=== PATIENT | female | born 2000 | race Caucasian/White ===

== ENCOUNTER 2019-09-25 14:41 | Emergency (ER) | payer BC ==
--- NOTE | 2019-09-25 17:31 | ED ---
Abdominal Pain/Female - HPI Summary HPI Summary: Patient complains of right upper quadrant pain since 4 days, associated decreased by mouth intake, nausea, one episode of diarrhea yesterday, 2 bowel movements in one week, with one episode of syncope 2 days ago inshower. Patient has history of cholecystectomy in [address] [facility]. Patient states she called her surgeon and was advised to come to the ED. Denies fever, cough, sore throat, CP, SOB, vomiting, urine symptoms, vaginal symptoms. Medical history is none. - History of Current Complaint Chief Complaint: EDAbdPain Stated Complaint: ABD PAIN Time Seen by Provider: 09/25/19 17:28 Hx Obtained From: Patient Onset/Duration: Gradual Onset, Lasting Days Timing: Intermittent Episode Lasting Severity Initially: Moderate Severity Currently: Moderate Pain Intensity: 5 Pain Scale Used: 0-10 Numeric Location: Discrete At: RUQ Radiates: No Character: Dull Aggravating Factor(s): Food Alleviating Factor(s): Nothing Associated Signs and Symptoms: Positive: Negative Allergies/Adverse Reactions: Allergies Allergy/AdvReac Type Severity Reaction Status Date / Time amoxicillin Allergy Unknown Verified 09/25/19 15:06 Reaction Details shellfish derived Allergy Airway Verified 09/25/19 15:06 Obstruction Home Medications: Home Medications NK [No Home Medications Reported] 09/25/19 [History Confirmed 09/25/19] PMH/Surg Hx/FS Hx/Imm Hx Endocrine/Hematology History: Denies: Hx Anticoagulant Therapy Cardiovascular History: Denies: Hx Pacemaker/ICD History: Denies: Hx Dialysis Sensory History: Denies: Hx Eye Prosthesis Opthamlomology History: Denies: Hx Legally Blind EENT History: Denies: Hx Deafness Neurological History: Denies: Hx Dementia Infectious Disease History: No Infectious Disease History: Denies: Traveled Outside the [place] in Last 30 Days - Family History Known Family History: Positive: Non-Contributory - Social History Alcohol Use: Occasionally Hx Substance Use: No Hx Tobacco Use: No Review of Systems Constitutional: Negative Eyes: Negative ENT: Negative Cardiovascular: Negative Respiratory: Negative Positive: Abdominal Pain, Diarrhea, Nausea Genitourinary: Negative Musculoskeletal: Negative Skin: Negative Neurological: Negative Psychological: Normal All Other Systems Reviewed And Are Negative: Yes Physical Exam - Summary Physical Exam Summary: Right upper quadrant tenderness. Abdominal exam otherwise unremarkable. Triage Information Reviewed: Yes Vital Signs On Initial Exam: Initial Vitals Temp Pulse Resp BP Pulse Ox 98.5 F 76 18 121/77 100 09/25/19 15:02 09/25/19 15:02 09/25/19 15:02 09/25/19 15:02 09/25/19 15:02 Vital Signs Reviewed: Yes Appearance: Positive: Well-Appearing Skin: Positive: Warm Head/Face: Positive: Normal Head/Face Inspection Eyes: Positive: Normal Neck: Positive: Supple Respiratory/Lung Sounds: Positive: Clear to Auscultation Cardiovascular: Positive: Normal Abdomen Description: Positive: Nontender, Other: Musculoskeletal: Positive: Normal Neurological: Positive: Normal Psychiatric: Positive: Normal AVPU Assessment: Alert - [place] Coma Scale Best Eye Response: 4 - Spontaneous Best Motor Response: 6 - Obeys Commands Best Verbal Response: 5 - Oriented Coma Scale Total: 15 Procedures - Sedation Patient Received Moderate/Deep Sedation with Procedure: No Diagnostics - Vital Signs Vital Signs Temp Pulse Resp BP Pulse Ox 09/25/19 17:02 98.7 F 83 16 108/64 100 09/25/19 15:02 98.5 F 76 18 121/77 100 - Laboratory Result Diagrams: 09/25/19 18:05 09/25/19 18:05 Lab Statement: Any lab studies that have been ordered have been reviewed, and results considered in the medical decision making process. Abdominal Pain Fem Course/Dx - Course Course Of Treatment: Patient complains of right upper quadrant pain since 4 days , associated decreased by mouth intake, nausea, one episode of diarrhea yesterday, 2 bowel movements in one week, with one episode of syncope 2 days ago inshower. Patient has history of cholecystectomy in [address] [facility]. Patient states she called her surgeon and was advised to come to the ED. Denies fever, cough, sore throat, CP, SOB, vomiting, urine symptoms, vaginal symptoms. Medical history is none. Vital signs within normal limits. Labs unremarkable. Ultrasound right upper quadrant negative. CT abdomen and pelvis with contrast negative. Patient advised to follow-up with surgeon. - Diagnoses Provider Diagnoses: Right upper quadrant abdominal pain Discharge ED - Sign-Out/Discharge Documenting (check all that apply): Patient Departure - Discharge Plan Condition: Stable Disposition: HOME Patient Education Materials: Abdominal Pain (ED) Referrals: Earnestine Hoover NP [Primary Care Provider] - Boston Flores DO [Doctor of Osteopathy] - Additional Instructions: Start eating a bland diet like soup or toast. Drink fluids to maintain hydration. Take Tylenol for pain. Follow-up with GI Dr. Padilla for further evaluation. Return to the ED for any new or worsening symptoms. - Billing Disposition and Condition Condition: STABLE Disposition: Home - Attestation Statements Provider Attestation: I was available for consultation for this patient. I did not evaluate the patient, or participate in any medical decision making or disposition decisions unless I am specifically named in the chart as having consulted on the patient. If I have consulted on the patient, please see my own ED note on the patient encounter. Kobe Sandoval MD
[2019-09-25 18:15] LABS: ABS Eosinophils 0.1 10^3/ul (0-0.6); ABS Lymphocytes 1.5 10^3/ul (1.0-4.8); ABS Monocytes 0.7 10^3/ul (0-0.8); ABS Neutrophils 2.2 10^3/ul (1.5-7.7); Eosinophil % 2.4 %; Hematocrit 38 % (35-47); Hemoglobin 13.4 g/dL (12.0-16.0); Lymphocyte % 33.9 %; Mean Corpuscular HGB Conc 35 g/dL (31-36); Mean Corpuscular Hemoglobin 31 pg (27-31); Mean Corpuscular Volume 88 fL (80-97); Mean Platelet Volume 7.9 fL (7.4-10.4); Nucleated Red Blood Cells % 0.1; Platelet Count 215 10^3/uL (150-450); Red Blood Count 4.34 10^6 /uL (3.70-4.87); Red Cell Distribution Width 13 % (10-15); White Blood Count 4.6 10^3/uL (3.5-10.8)
[2019-09-25 18:33] LABS: ALT 23 U/L (7-52); AST 19 U/L (13-39); Albumin/Globulin Ratio 1.2 (1-3); Alkaline Phosphatase 63 U/L (34-104); Anion Gap 6 mmol/L (2-11); Blood Urea Nitrogen 9 mg/dL (6-24); CO2 Carbon Dioxide 27 mmol/L (22-32); Calcium 9.5 mg/dL (8.6-10.3); Chloride 106 mmol/L (101-111); EGFR African American 107.5 (>60); EGFR Non-African American 88.9 (>60); Globulin 3.3 g/dL (2-4); Glucose 93 mg/dL (70-100); Potassium 3.5 mmol/L (3.5-5.0); Sodium 139 mmol/L (135-145); Total Protein 7.3 g/dL (6.4-8.9)
[2019-09-25 18:39] LABS: HCG Pregnancy < 0.60 mIU/mL
[2019-09-25 19:57] LABS: Urine Appearance Clear; Urine Bilirubin Negative (Negative); Urine Blood Negative (Negative); Urine Color Yellow; Urine Glucose Negative (Negative); Urine Ketones Negative (Negative); Urine Nitrite Negative (Negative); Urine Protein Negative (Negative); Urine Specific Gravity 1.011 (1.010-1.030); Urine Urobilinogen Negative (Negative)
[2019-09-25] MEDS ORDERED: Iohexol 300* (CONTRAST) 10 ML SDV IV ONE (21:38)
[2019-09-25] MEDS ORDERED: diPHENhydraMINE IV* 50 MG/ML 1 ml VIAL (BENADRYL) IV ONE (23:15)
[2019-09-25] MEDS ORDERED: Acetaminophen TAB* 325 MG PO ONE (23:16)
[2019-09-26 00:07] VITALS: BP 117/86
== END 2019-09-26 00:07 | disposition home or self-care (01) ==
LOC: ED 14:41
DX: R10.11 Right upper quadrant pain (principal); Z88.0 Allergy status to penicillin; Z90.49 Acquired absence of other specified parts of digestive tract
CPT/HCPCS: 36415; 74177; 76705; 80053; 81003; 83605; 83690; 84702; 85025; 86140; 96374; 99283; A9270-GY; J1200; Q9967